=== PATIENT | male | born 1955 | race Caucasian/White ===

== ENCOUNTER 2021-03-08 10:41 | Outpatient (CLI) | payer BC ==
[~2021-03-08 10:41] MED LIST: AMLO2.5T4 PO; BUTA-281 PO; CILO100T PO; CYCL-1 PO; DOCU100C40 PO; GABA-532 PO; GUAI100L97 PO; LOP25T PO; MONT10TA21 PO; OXYC-658 PO; PER10325T PO; SIMV-42 PO; TAMS0.4C32 PO; TRAM50TA2 PO; WARF-113 PO; WARF5TAB2 PO
== END 2021-03-08 23:59 | disposition home or self-care (01) ==
LOC: RT 10:41
PROVIDERS: ATTEND Internal Medicine
DX: R94.2 Abnormal results of pulmonary function studies (principal); R06.02 Shortness of breath
CPT/HCPCS: 94010; 94727; 94729

== ENCOUNTER 2023-03-21 08:23 | Outpatient (CLI) | payer MEDICARE ==
[~2023-03-21 08:23] MED LIST changes: -CILO100T PO; +CILO100T27 PO; +MONT-47 PO; -MONT10TA21 PO
== END 2023-03-21 23:59 | disposition home or self-care (01) ==
LOC: RT 08:23
PROVIDERS: ATTEND Internal Medicine Cardiovascular Disease
DX: R94.2 Abnormal results of pulmonary function studies (principal); Z79.899 Other long term (current) drug therapy
CPT/HCPCS: 85018; 94010; 94727; 94729; A6258

== ENCOUNTER 2024-04-01 10:13 | Outpatient (CLI) | payer MEDICARE ==
[2024-04-01] VITALS (12 sets, daily range): BP systolic 60–118; BP diastolic 38–79; PULSE 66–89
[~2024-04-01 10:13] MED LIST changes: +AMI200T PO; +AMIT25TA9; -AMLO2.5T4 PO; +ASPI-1265 PO; +CARB-17 PO; -CYCL-1 PO; -DOCU100C40 PO; +EZET10TA48; -GUAI100L97 PO; +ISOS30TA84 PO; +LEVO25TA7 PO; -LOP25T PO; -MONT-47 PO; -OXYC-658 PO; -PER10325T PO; +RANO500T6 PO; +ROSU40TA PO; -SIMV-42 PO; -TAMS0.4C32 PO; -TRAM50TA2 PO; +ZOLP5TAB8 PO
== END 2024-04-01 23:59 | disposition home or self-care (01) ==
LOC: CARD DIAG 10:13
PROVIDERS: ATTEND Internal Medicine Cardiovascular Disease
DX: R42 Dizziness and giddiness (principal)
CPT/HCPCS: 93660

== ENCOUNTER 2024-11-02 05:18 | Outpatient (CLI) | payer MEDICARE | END 2024-11-02 23:59 | disposition home or self-care (01) | LOC: MRI02 05:18 | PROVIDERS: ATTEND Family Medicine Sports Medicine | DX: S92.324A Nondisplaced fracture of second metatarsal bone, right foot, initial encounter for closed fracture (principal); M77.9 Enthesopathy, unspecified; M54.16 Radiculopathy, lumbar region; M70.50 Other bursitis of knee, unspecified knee; M25.561 Pain in right knee; M17.12 Unilateral primary osteoarthritis, left knee; R60.0 Localized edema; X58.XXXA Exposure to other specified factors, initial encounter; Y93.89 Activity, other specified; Y92.89 Other specified places as the place of occurrence of the external cause; Y99.8 Other external cause status | CPT/HCPCS: 73718 ==

== ENCOUNTER 2024-12-10 11:03 | Day surgery (SDC) | payer MEDICARE ==
--- NOTE | 2024-12-08 10:51 | ELECTROCARDIOGRAPH REPORT ---
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 TARIQ Cassidy Measurements Intervals [place] Rate: 73 P: 0 NV: 0 QRS: 72 QRSD: 132 T: -69 QT: 509 QTc: 561 Interpretive Statements AtrialFlutter. Nonspecific intraventricular conduction delay Repol abnrm suggests ischemia, diffuse leads Electronically Signed On 12-08-2024 19:01:[address] TARIQ Cassidy Please click the below link to view image of tracing.
[2024-12-08 11:40] LABS: ALBUMIN 3.5 G/DL (3.4-5.0); ALBUMIN/GLOBULIN RATIO 1.5 (1.1-1.5); ALKALINE PHOSPHATASE 66 IU/L (46-116); BLOOD UREA NITROGEN 14 MG/DL (7-18); BUN/CREATININE RATIO 10.5 (10.0-20.0); CALCIUM 8.8 MG/DL (8.5-10.1); CHLORIDE 107 MMOL/L (99-107); CREATININE 1.33 MG/DL (0.60-1.10); PRE OP ALT 43 U/L (30-65); PRE OP ANION GAP 4 (8-16); PRE OP AST 25 U/L (10-37); PRE OP GLUCOSE 103 MG/DL (70-104); PRE OP POTASSIUM 3.8 MMOL/L (3.4-5.1); PRE OP SODIUM 144 MMOL/L (135-145); TOTAL CARBON DIOXIDE 33.4 MMOL/L (24-32); TOTAL PROTEIN 5.8 G/DL (6.4-8.2); eGFR 53 ML/MIN
[2024-12-08 11:42] LABS: BILIRUBIN,URINE NEGATIVE (Neg); CLARITY,URINE CLEAR (Clear); COLOR,URINE YELLOW (Yellow); GLUCOSE, URINE NEGATIVE (Neg); KETONES,URINE NEGATIVE (Neg); NITRITES, URINE NEGATIVE (Neg); OCCULT BLOOD,URINE NEGATIVE (Neg); PROTEIN,URINE NEGATIVE (Neg); UROBILINOGEN,URINE 0.2 E.U/dL (0.2-1.0)
[2024-12-08 11:44] LABS: BASOPHILS % (AUTO) 0.5 % (0-1); EOSINOPHILS # (AUTO) 0.1 X10'3 (0-0.9); EOSINOPHILS % (AUTO) 1.1 % (0-6); LYMPHOCYTES # (AUTO) 1.4 X10'3 (1.1-4.8); LYMPHOCYTES % (AUTO) 20.7 % (21-51); MEAN CORPUSCULAR HEMOGLOBIN 31.7 PG (27.0-31.0); MEAN CORPUSCULAR HGB CONC 34.7 g/dL (33.0-36.5); MEAN CORPUSCULAR VOLUME 91.4 FL (78-98); MEAN PLATELET VOLUME 7.8 FL (7.4-10.4); MONOCYTES # (AUTO) 0.6 X10'3 (0-0.9); MONOCYTES % (AUTO) 7.9 % (2-12); NEUTROPHILS # (AUTO) 4.9 X10'3 (1.8-7.7); NEUTROPHILS % (AUTO) 69.8 % (42-75); PRE OP HEMATOCRIT 44.4 % (42.0-52.0); PRE OP HEMOGLOBIN 15.4 g/dL (14.0-17.9); PRE OP PLATELET COUNT 306 X10'3 (140-440); RED BLOOD COUNT 4.86 X10'6 (4.70-6.10); RED CELL DISTRIBUTION WIDTH 14.1 % (11.5-14.5)
[2024-12-08 12:15] LABS: LEUKOCYTE ESTERASE ,URINE SMALL (Neg)
[2024-12-08 12:33] LABS: UA COLLECTION TYPE CLN CATCH MIDSTREAM
[2024-12-08 12:36] LABS: BACTERIA,URINE FEW /HPF (Neg); MUCUS STRANDS FEW /LPF (Neg); RBC,URINE NONE SEEN /HPF (0-2); SQUAMOUS EPITHELIAL CELL,UR FEW /LPF (FEW); WBC,URINE 0-4 /HPF (0-4)
[2024-12-08 12:37] LABS: WBC CASTS 0-3 /LPF (NEGATIVE)
[2024-12-10] VITALS (12 sets, daily range): BP systolic 118–150; BP diastolic 81–99; PULSE 58–85; RESP 9–18; TEMP 97; O2SAT 92–99
[~2024-12-10] VITALS: Ht 182.9 cm; Wt 104.0 kg
[~2024-12-10 11:03] MED LIST changes: -AMIT25TA9; -BUTA-281 PO; -CARB-17 PO; -EZET10TA48; +EZET10TA48 PO; +FLUD0.1T2 PO; +GABA300C PO; -ISOS30TA84 PO; +MAGN200T8 PO; +METO-395 PO; +MIDO5TAB4 PO; +NITR0.4T51 SL; +POTA-207 PO; -RANO500T6 PO; +SEMA2PEN SUBCUT; -WARF-113 PO; +WARF4TAB69 PO; -WARF5TAB2 PO
[2024-12-10] MEDS: ceFAZolin 2gm in dextrose, iso 50 ML IV ONE (12:02)
[2024-12-10] MEDS: DOCUMENT DATE & TIME OF BETA-BLOCKER PO ONE (12:02)
[2024-12-10] MEDS: famotidine 20mg tablet PO ONE (12:04)
[2024-12-10] MEDS: ringers solution, lacted 1,000 ML IV SCH (12:04)
[2024-12-10 12:50] LABS: INR 1.4 INR; PRE OP PARTIAL THROMB. TIME 27 SECONDS (22-32); PROTHROMBIN TIME 14.3 SECONDS (9.0-12.0)
[2024-12-10] MEDS ORDERED: ringers solution, lacted 1,000 ML IV SCH (12:55)
[2024-12-10] MEDS ORDERED: labetalol 20mg/4ml (5mg/ml) syringe IV PRN (12:55)
[2024-12-10] MEDS ORDERED: HYDROmorphone/PF 0.2 MG/ML SYRINGE IV PRN ×2 (12:55)
[2024-12-10] MEDS ORDERED: meperidine/PF 25mg/ml syringe IV PRN (12:55)
[2024-12-10] MEDS ORDERED: proCHLORperazine 10 MG/2 ml inj IV PRN (12:55)
[2024-12-10] MEDS ORDERED: hydrALAZINE 20mg/ml inj. IV PRN (12:55)
[2024-12-10] MEDS ORDERED: ondansetron/PF 4mg/2ml inj IV PRN (12:55)
[2024-12-10] MEDS: acetaminophen 325mg tablet PO PRN (14:35)
[2024-12-10] MEDS ORDERED: bacitracin 15gm ointment TP ONE (14:54)
[2024-12-10] MEDS ORDERED: sevoflurane 250ml liquid IH ONE (15:04)
[2024-12-10] MEDS ORDERED: fentaNYL/PF 50MCG/1 ML 2ML syringe ONE (15:14)
[2024-12-10] MEDS ORDERED: midazolam 1 mg/ML 2ml injection ONE (15:39)
[2024-12-10] MEDS ORDERED: ROPIVAcaine 0.5% (5mg/ml) 30ml vial ONE (15:40)
[2024-12-10] MEDS ORDERED: dexamethasone sod phosphate 4mg/ml inj. ONE (15:40)
[2024-12-10] MEDS ORDERED: propofol inj 20 ML IV ONE (15:40)
[2024-12-10] MEDS ORDERED: LIDOcaine 2% (20mg/ml) 5ml vial ONE (15:40)
[2024-12-10] MEDS ORDERED: 0.9 % SODIUM CHLORIDE 10 ML VIAL ONE (15:40)
[2024-12-10] MEDS ORDERED: ondansetron/PF 4mg/2ml inj ONE (15:51)
[2024-12-10] MEDS: morphine 4 MG/ML inj SYRINge IV PRN (16:57)
[2024-12-10] MEDS: acetaminophen 1,000mg/100ml IV 100 ML IV PRN (17:17)
[2024-12-10] MEDS: morphine 2 MG/ML inj. syringe IV PRN (17:49)
== END 2024-12-10 18:02 | disposition home or self-care (01) ==
LOC: PAS 11:03
PROVIDERS: ATTEND Podiatrist Foot & Ankle Surgery
DX: M25.372 Other instability, left ankle (principal); S93.325A Dislocation of tarsometatarsal joint of left foot, initial encounter; I48.92 Unspecified atrial flutter; I48.91 Unspecified atrial fibrillation; G47.33 Obstructive sleep apnea (adult) (pediatric); I25.10 Atherosclerotic heart disease of native coronary artery without angina pectoris; E03.9 Hypothyroidism, unspecified; M19.90 Unspecified osteoarthritis, unspecified site; E78.5 Hyperlipidemia, unspecified; X58.XXXA Exposure to other specified factors, initial encounter; Y93.89 Activity, other specified; Y92.89 Other specified places as the place of occurrence of the external cause; Y99.8 Other external cause status; Z79.01 Long term (current) use of anticoagulants; Z79.899 Other long term (current) drug therapy; Z95.5 Presence of coronary angioplasty implant and graft; Z87.891 Personal history of nicotine dependence; G47.30 Sleep apnea, unspecified; Z88.1 Allergy status to other antibiotic agents; Z88.6 Allergy status to analgesic agent; Z91.041 Radiographic dye allergy status; G89.18 Other acute postprocedural pain
CPT/HCPCS: 28615; 28730; 36415; 64447; 64450; 73620; 76942; 80053; 81001; 82948; 85025; 85610; 85730; 87077; 87088; 87186; 93005; A4215; A4618; A6223; A6253; A6402; A6449; A7000; C1713; J0131; J0690; J0735; J1100; J2003; J2250; J2270; J2405; J2704; J2795; J3010; J7030; J7120; Z7506; Z7508; Z7512; Z7610; 76000

== ENCOUNTER 2025-02-10 06:06 | Day surgery (SDC) | payer MEDICARE ==
[2025-02-09 11:59] LABS: BASOPHILS % (AUTO) 0.4 % (0-1); EOSINOPHILS # (AUTO) 0.1 X10'3 (0-0.9); EOSINOPHILS % (AUTO) 1.4 % (0-6); HEMATOCRIT 44.9 % (42.0-52.0); HEMOGLOBIN 15.5 g/dl (14.0-17.9); LYMPHOCYTES # (AUTO) 1.3 X10'3 (1.1-4.8); LYMPHOCYTES % (AUTO) 17.5 % (21-51); MEAN CORPUSCULAR HEMOGLOBIN 31.6 PG (27.0-31.0); MEAN CORPUSCULAR HGB CONC 34.5 g/dL (33.0-36.5); MEAN CORPUSCULAR VOLUME 91.6 FL (78-98); MEAN PLATELET VOLUME 7.6 FL (7.4-10.4); MONOCYTES # (AUTO) 0.5 X10'3 (0-0.9); MONOCYTES % (AUTO) 6.6 % (2-12); NEUTROPHILS # (AUTO) 5.4 X10'3 (1.8-7.7); NEUTROPHILS % (AUTO) 74.1 % (42-75); PLATELET COUNT 350 X10'3 (140-440); RED CELL DISTRIBUTION WIDTH 13.9 % (11.5-14.5); WHITE BLOOD COUNT 7.3 X10'3 (4.5-11.0)
[2025-02-09 12:09] LABS: ALBUMIN 3.7 G/DL (3.4-5.0); ANION GAP 8 (8-16); BLOOD UREA NITROGEN 11 MG/DL (7-18); BUN/CREATININE RATIO 6.5 (10.0-20.0); CALCIUM 8.9 MG/DL (8.5-10.1); CHLORIDE 106 MMOL/L (99-107); GLUCOSE 141 MG/DL (70-104); POTASSIUM 4.2 MMOL/L (3.5-5.1); SODIUM 142 MMOL/L (135-145); TOTAL CARBON DIOXIDE 27.9 MMOL/L (24-32); eGFR 40 ML/MIN
[2025-02-09 12:10] LABS: INR 3.9 INR; PROTHROMBIN TIME 34.8 SECONDS (9.0-12.0)
[2025-02-10] VITALS (7 sets, daily range): BP systolic 127–163; BP diastolic 86–99; PULSE 64–86; RESP 12–18; TEMP 97.8; O2SAT 94–98
[~2025-02-10] VITALS: Ht 175.3 cm; Wt 102.1 kg
--- NOTE | 2025-02-10 06:29 | ELECTROCARDIOGRAPH REPORT ---
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 TARIQ Cassidy Measurements Intervals [place] Rate: 71 P: 0 IN: 0 QRS: 86 QRSD: 119 T: -76 QT: 470 QTc: 511 Interpretive Statements Atrial fibrillation Nonspecific intraventricular conduction delay Repol abnrm suggests ischemia, diffuse leads Electronically Signed On 02-10-2025 9:37:[address] TARIQ Cassidy Please click the below link to view image of tracing.
[2025-02-10] MEDS ORDERED: normal saline 1000ml 1,000 ML IV SCH (06:35)
[2025-02-10] MEDS ORDERED: MIDAZolam 1mg/ml 10ml vial IV ONE (06:35)
[2025-02-10] MEDS ORDERED: amiodarone 150mg/dext, iso-os 100 ML IV ONE (06:35)
[2025-02-10] MEDS ORDERED: atropine 0.1mg/ml 10ml syringe IV ONE (06:35)
[2025-02-10] MEDS ORDERED: LORazepam 0.5 MG tablet PO ONE (06:35)
[2025-02-10] MEDS ORDERED: diphenhydrAMINE 25mg capsule PO ONE (06:35)
[2025-02-10] MEDS ORDERED: morphine 10mg/ml inj. IV ONE (06:35)
[2025-02-10] MEDS ORDERED: WARF3TAB56 PO (06:47)
[2025-02-10] MEDS ORDERED: LEVO25TA2 PO (06:47)
[2025-02-10 07:21] LABS: INR 3.9 INR; PROTHROMBIN TIME 35.1 SECONDS (9.0-12.0)
[2025-02-10] MEDS ORDERED: midazolam 1 mg/ML 2ml injection ONE ×3 (08:13→08:32)
[2025-02-10] MEDS ORDERED: fentaNYL/PF 50MCG/1 ML 2ML syringe ONE ×2 (08:13→08:32)
[2025-02-10] MEDS ORDERED: amiodarone 50MG/ML inj IV ONE (08:20)
[2025-02-10] MEDS ORDERED: atropine 0.1mg/ml 10ml syringe ONE (08:21)
[2025-02-10] MEDS ORDERED: diphenhydrAMINE 50 mg/ml inj ONE (08:36)
--- NOTE | 2025-02-10 09:16 | ELECTROCARDIOGRAPH REPORT ---
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 TARIQ Cassidy Measurements Intervals [place] Rate: 66 P: 70 SD: 324 QRS: 60 QRSD: 130 T: 44 QT: 485 QTc: 509 Interpretive Statements Sinus rhythm Prolonged SD interval Probable left atrial enlargement Nonspecific intraventricular conduction delay Electronically Signed On 02-10-2025 9:38:[address] TARIQ Cassidy Please click the below link to view image of tracing.
--- NOTE | 2025-02-10 09:27 | CARDIOLOGY REPORT ---
DATE OF SERVICE: 02/10/2025 DICTATING PHYSICIAN: TARIQ Cassidy MD ELECTRICAL CARDIOVERSION INDICATION: The patient is a 69-year-old male with history of prediabetes, hypertension, hyperlipidemia, sleep apnea, CAD, CABG with paroxysmal atrial fibrillation. The patient had CABG x 2 with RHOADES to LAD, SVG to OM by Dr. Levy on 10/06/2016. The patient is known to have had PAF since 04/11/2022. At that time, he was treated with warfarin and metoprolol and amiodarone and cardioversion in 05/2022. He remained in normal sinus rhythm and the patient was noted to be in AFib in 10/2024. After discussing risks, benefits, and alternative options, the patient prefers to proceed with electrical cardioversion. Temporarily he was taking amiodarone was temporarily increased to 200 mg p.o. b.i.d., which will be reduced to 200 once a day with this discharge Continue warfarin and pre- procedure, anterior and posterior approach patches used. Using biphasic electrical energy 200 joules, converted to normal sinus rhythm, remained in normal sinus rhythm. The patient tolerated the procedure well. There were no complications. IMPRESSION: A 69-year-old male with persistent AFib, converted to normal sinus rhythm. RECOMMENDATIONS: Diet, weight loss, and exercise program and treatment of sleep apnea. Continue medications. TARIQ Cassidy MD TID: [id number] RECEIPT: [id number] /ELAINE/RONDA cc: Jaxson Garrido MD [facility]
== END 2025-02-10 10:20 | disposition home or self-care (01) ==
LOC: SSTAY O 06:06
PROVIDERS: ATTEND Internal Medicine Cardiovascular Disease
DX: I48.0 Paroxysmal atrial fibrillation (principal); E78.5 Hyperlipidemia, unspecified; I10 Essential (primary) hypertension; I25.10 Atherosclerotic heart disease of native coronary artery without angina pectoris; I48.19 Other persistent atrial fibrillation; G47.30 Sleep apnea, unspecified; Z95.1 Presence of aortocoronary bypass graft; Z79.899 Other long term (current) drug therapy; Z79.01 Long term (current) use of anticoagulants
CPT/HCPCS: 36415; 80048; 85025; 85610; 92960; 93005; J1200; J2250; J3010; J7030; 99152; J0282; J0461

== ENCOUNTER 2025-07-03 17:41 | Emergency (ER) | payer MEDICARE ==
[~2025-07-03] VITALS: Ht 188 cm; Wt 105.2 kg
[~2025-07-03 17:41] MED LIST changes: -AMI200T PO; +AMIO200T76 PO; -EZET10TA48 PO; +EZET10TA80 PO; -GABA300C PO; +LEVO25TA2 PO; -LEVO25TA7 PO; +WARF3TAB56 PO; +ZOLP5TAB19 PO; -ZOLP5TAB8 PO
--- NOTE | 2025-07-03 18:02 | Physician Documentation ---
History of Present Illness ~ Chief Complaint: Mechanical Fall Stated Complaint: L ANKLE PAIN Time Seen by MD: 18:15 HPI MSE: Patient is a very pleasant 69-year-old male that presents to the emergency department for evaluation of a fall sustained at his home earlier today. P jermaine reports that he did not lose consciousness and did not hit his head. The patient believes that he was lightheaded prior to falling. Patient reports that he has a cardiac history of AFib with cardioversion in the past. Patient is a beta-bradly with metoprolol. Patient reports he has a history of hypotension that he takes 2 different medications for in an effort to correct his hypotension. Patient is being followed by Cardiology. Patient denies any chest pain shortness of breath chest pressure headache blurry vision lightheadedness at this time. The patient reports that he has had multiple episodes of this over the course of the last couple of years. HPI: The patient tells me that he was outside on his porch. He had an episode of low blood pressure, which is calm and for him. He collapsed to the ground and rolled his left ankle. He does not think he completely lost consciousness. No head or neck injury. His pain is primarily in the left lateral ankle, although he was able to bear weight. He has several superficial abrasions on his hand and knees. No other acute concerns. Regarding his episodes of low blood pressure, this is chronic and recurrent. He has had an extensive workup in the past. He is seeing multiple specialists including a neurologist and patient liaison. Tetanus within 5 Years?: No Medication Reconciliation Allergies: Coded Allergies: Iodinated Contrast Media (Verified Allergy, Intermediate, HIVES, 08/15/23) Penicillins (Verified Allergy, Intermediate, PT STATES NO PERSONAL REACTION BUT FAMILY HX OF ALLERGY, 12/08/24) clopidogrel (Verified Allergy, Intermediate, HIVES, 08/15/23) codeine (Verified Allergy, Intermediate, RASH, 08/15/23) levofloxacin (Verified Allergy, Unknown, 08/15/23) Scheduled Amiodarone Hcl (Cordarone), 1 TAB PO BID, (Reported) Aspirin (Aspirin), 1 TAB PO DAILY, (Reported) Cilostazol (Cilostazol), 1 TAB PO BID, (Reported) Ezetimibe (Ezetimibe), 1 TAB PO HS, (Reported) Fludrocortisone Acetate* (Florinef*), 3 TAB PO QAM, (Reported) Gabapentin (Gabapentin), 2 CAP PO QPM, (Reported) Magnesium Oxide (Mag-Oxide), 2 TAB PO DAILY, (Reported) Metoprolol Succinate (Metoprolol Succinate), 1 TAB PO QAM, (Reported) Potassium Chloride* (K-Dur*), 1 TAB PO BID, (Reported) Rosuvastatin Calcium* (Crestor*), 1 TAB PO DAILY, (Reported) Semaglutide (Ozempic), 2 MG SUBCUT Q7D, (Reported) Warfarin Sodium (Warfarin Sodium), 1 TAB PO Q7D, (Reported) Warfarin Sodium (Warfarin Sodium), 1 TAB PO DAILY, (Reported) levothyroxine sodium* (Synthroid*), 0.5 TAB PO DAILY, (Reported) Scheduled PRN Hydrocodone Bit/Acetaminophen 5/325 MG ([place] 5/325 MG), 1 TAB PO TID PRN PRN for pain Midodrine HCl (Midodrine HCl), 1 TAB PO Q8H PRN for SBP<140, (Reported) Nitroglycerin SL* (Nitrostat SL*), 1 TAB SL Q5MIN PRN for Chest pain Q5min PRNx3-call MD, (Reported) Zolpidem Tartrate* (Ambien*), 2 TAB PO HSPRN PRN for sleep, (Reported) Past Medical History Past Medical History: Coronary Artery Disease, High Cholesterol, Hypertension, Vascular Disease, Chronic Pain Past Surgical History: coronary bypass surgery, other Alcohol Use: None Drug Use: none Lives with: Spouse Lives In: Home Occupation: retired Review of Systems Musculoskeletal: Reports: joint pain, joint swelling Physical Exam Vital Signs: Temperature: 97.2, Source: Temporal, Heart Rate: 71, Respiratory Rate: 18, BP: 90/67, Pulse Oximetry: 92, Weight: 105.200 Oxygen Flow Rate: 0 Physical Exam General: This is a pleasant and overall well-appearing middle-aged man, at bedside HEENT: Atraumatic, oropharynx is moist Neck: Full range of motion without pain Heart: Regular rate and rhythm, normal-appearing peripheral perfusion Lungs: normal work of breathing, normal oxygen saturation on room air Extremities: Warm and well-perfused Left lower extremity: The patient has obvious swelling and significant tenderness on palpation of the lateral ankle around the lateral malleolus. No focal bony point tenderness on palpation of the bones of the knee, tibia, or forefoot Skin: The patient has several superficial abrasions over his right hand and her right anterior knee Neuro: Alert and oriented Psychiatric: Calm and cooperative with exam Progress Results/Orders Results/Orders Completed Orders - ADRIAN FRAUSTO MD Hydrocodone/Apap 5/325mg Tab ([place] 5/32 (07/03/25 19:05) Medications Received in ER Medications (Trade) Dose Ordered Sig/Doreen Route PRN Reason Start Time Stop Time Status Last Admin Dose Admin ([place] 5/325mg tablet) 1 tab ONCE ONCE PO 07/03/25 19:05 07/03/25 19:06 DC 07/03/25 19:11 1 TAB Vital Signs 07/03/25 07/03/25 07/03/25 07/03/25 17:45 18:42 19:11 19:23 Temp 97.2 98.1 Pulse 71 66 Resp 18 16 17 16 B/P (MAP) 90/67 127/67 Pulse Ox 92 99 O2 Flow Rate 0 Laboratory Tests Test 07/03/25 18:10 White Blood Count 7.2 Red Blood Count 5.00 Hemoglobin 15.8 Hematocrit 46.2 Mean Corpuscular Volume 92.4 Mean Corpuscular Hemoglobin 31.5 H Mean Corpuscular Hemoglobin Concent 34.1 Red Cell Distribution Width 14.0 Platelet Count 373 Mean Platelet Volume 7.3 L Neutrophils (%) (Auto) 66.7 Lymphocytes (%) (Auto) 21.5 Monocytes (%) (Auto) 10.3 Eosinophils (%) (Auto) 0.9 Basophils (%) (Auto) 0.6 Neutrophils # (Auto) 4.8 Lymphocytes # (Auto) 1.5 Monocytes # (Auto) 0.7 Eosinophils # (Auto) 0.1 Basophils # (Auto) 0.0 CBC Comment Sodium Level 142 Potassium Level 3.9 Chloride Level 106 Carbon Dioxide Level 26.6 Anion Gap 9 Blood Urea Nitrogen 17 Creatinine 1.59 H Estimated GFR/1.73 m2 44 BUN/Creatinine Ratio 10.7 Glucose Level 92 Calcium Level 9.1 Troponin I High Sensitivity 24 Pro-B-Type Natriuretic Peptide 2034 H Albumin 3.9 Chemistry Comments EKG/XRAY/CT/US/VASC/MRI EKG : Additional Comment I personally interpreted the EKG and this shows: Sinus rhythm, rate 64, QTC 512, no STEMI Bone/Soft Tissue X-Ray (Ext.) : Additional Comment I personally interpreted the x-ray, and it shows: A distal minimally displaced fibular fracture. No tibia fracture. No dislocation Medical Decision Making Additional information obtaine: old records Findings Reviewed past blood work including kidney function Differential Dx:Considerations: Include: Closed head injury, Fracture(s), Abrasion(s), Contusion(s), Hematoma(s) Additional Comment The patient presents with a fall and left ankle injury. On exam he has findings concerning for fracture. X-ray confirms a distal fibular fracture. He is placed in a walking boot. He was given pain medication and ice. His episodes of low blood pressure are chronic and he has had an extensive workup in the past. His blood testing and EKG here are reassuring. After observation, his blood pressure was normal. He will be discharged home with orthopedic clinic follow up in ongoing outpatient workup of his chronic episodes of low blood pressure. Departure Time of Disposition: 19:14 Disposition: 01 HOME / SELF CARE / HOMELESS Impression: Primary Impression: Fibula fracture Additional Impression: Hypotension Condition: Improved Discharge Instructions: Nondisplaced Fibular Ankle Fracture Treated With Immobilization Referrals: NO PRIMARY CARE PROVIDER (PCP) Prescriptions Hydrocodone Bit/Acetaminophen 5/325 MG ([place] 5/325 MG) 5 Mg/325 Mg Tablet 1 TAB PO TID PRN PRN for pain for 5 Days, #15 TAB Prov: ADRIAN FRAUSTO MD 07/03/25 Education Educated: Patient Educated regarding: diagnosis, treatment, need for follow up Signature Scribe Signature: elizabeth Attestation: MARY Remy Jul 03, 2025 18:02 ADRIAN FRAUSTO MD Jul 03, 2025 19:16
--- NOTE | 2025-07-03 18:04 | ELECTROCARDIOGRAPH REPORT ---
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 TARIQ Cassidy Measurements Intervals [place] Rate: 64 P: 28 [place]: 298 QRS: 54 QRSD: 124 T: 18 QT: 496 QTc: 512 Interpretive Statements Sinus rhythm Prolonged [place] interval Probable left atrial enlargement Nonspecific intraventricular conduction delay Electronically Signed On 07-04-2025 12:58:[address] TARIQ Cassidy Please click the below link to view image of tracing.
--- NOTE | 2025-07-03 18:31 | RADIOLOGY REPORT ---
CHEST RADIOGRAPH Indication: CP Technique: Single frontal view of the chest was obtained Comparison: DI CHEST,SINGLE VIEW on DOS: 08/15/23 FINDINGS: Lines and Tubes: None Lungs: No focal consolidation. Pleura: No effusion. No pneumothorax. Cardiomediastinal contours: Heart size and is within Normal limits with Mild atherosclerotic calcification and uncoiling of the aorta. Midline sternotomy wires surgical clips is noted Consider prior history CABG. Bones: No acute osseous abnormality. IMPRESSION: No acute cardiopulmonary disease.
--- NOTE | 2025-07-03 18:33 | RADIOLOGY REPORT ---
CLINICAL INDICATION: MECHANICAL FALL TECHNIQUE: 3 radiographic views of the left ankle were obtained. Comparison: None FINDINGS/IMPRESSION: There is acute mildly displaced fracture of the distal fibula with associated moderate soft tissue edema.
[2025-07-03 18:37] LABS: MEAN PLATELET VOLUME 7.3 FL (7.4-10.4); RED CELL DISTRIBUTION WIDTH 14.0 % (11.5-14.5)
[2025-07-03 19:04] LABS: CREATININE 1.59 MG/DL (0.60-1.10); PRO BRAIN NATRIURETIC PEPTIDE 2034 PG/ML (0-125); TOTAL CARBON DIOXIDE 26.6 MMOL/L (24-32); eCRCL 52 ML/MIN; eGFR 44 ML/MIN
[2025-07-03] MEDS: HYDROcodone/acetaminophen 5mg/325mg tablet PO ONE (19:11)
[2025-07-03] MEDS ORDERED: HYDR-3965 PO (19:15)
[2025-07-03 19:23] VITALS: BP 127/67; PULSE 66; RESP 16; TEMP 98.1; O2SAT 99
== END 2025-07-03 19:30 | disposition home or self-care (01) ==
LOC: ER 17:42
DX: S60.511A Abrasion of right hand, initial encounter (principal); S80.211A Abrasion, right knee, initial encounter; I10 Essential (primary) hypertension; I25.10 Atherosclerotic heart disease of native coronary artery without angina pectoris; G89.29 Other chronic pain; E78.00 Pure hypercholesterolemia, unspecified; I48.91 Unspecified atrial fibrillation; Z88.0 Allergy status to penicillin; Z88.5 Allergy status to narcotic agent; Z91.041 Radiographic dye allergy status; Z95.1 Presence of aortocoronary bypass graft; Z88.1 Allergy status to other antibiotic agents; Z79.82 Long term (current) use of aspirin; Z79.899 Other long term (current) drug therapy; X50.1XXA Overexertion from prolonged static or awkward postures, initial encounter; Y93.89 Activity, other specified; Y92.89 Other specified places as the place of occurrence of the external cause; Y99.8 Other external cause status
CPT/HCPCS: 36415; 71045; 73600; 80048; 83880; 84484; 85025; 93005; 99285